=== PATIENT | male | born 2000 | race Caucasian/White ===

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

== ENCOUNTER 2021-12-04 14:51 | Emergency (ER) | payer OTHER ==
[~2021-12-04] VITALS: Ht 182.9 cm; Wt 75.0 kg
[2021-12-04 15:07] VITALS: BP 116/75
== END 2021-12-04 18:23 | disposition left against medical advice (07) ==
LOC: EMS 14:51
DX: Z53.21 Procedure and treatment not carried out due to patient leaving prior to being seen by health care provider (principal)

== ENCOUNTER 2022-12-06 02:31 | Emergency (ER) | payer OTHER ==
[~2022-12-06] VITALS: Ht 177.8 cm; Wt 85.0 kg
[2022-12-06 02:53] LABS: COVID AG,FIA SOURCE NASAL SWAB
[2022-12-06] MEDS ORDERED: ONDANSETRON HCL 4 MG TABLET PO ONE (03:30)
[2022-12-06] MEDS ORDERED: ACETAMINOPHEN/CODEINE 300-30 MG TABLET PO ONE (03:30)
[2022-12-06] MEDS ORDERED: GuaiFENesin/D-METHORPHAN [SUGAR-FREE] 200-20MG/10 ML SYRUP UDCUP PO ONE (03:30)
[2022-12-06 03:56] VITALS: BP 135/77
[2022-12-06] MEDS ORDERED: ONDA-104 PO (04:24)
[2022-12-06] MEDS ORDERED: GUAIFDM PO (04:24)
[2022-12-06] MEDS ORDERED: ACET-2080 PO (04:24)
[2022-12-06] MEDS ORDERED: IBUP-1554 PO (04:24)
== END 2022-12-06 05:21 | disposition home or self-care (01) ==
LOC: EMS 02:31
DX: U07.1 COVID-19 (principal); J02.8 Acute pharyngitis due to other specified organisms; R11.2 Nausea with vomiting, unspecified; Z20.822 Contact with and (suspected) exposure to COVID-19
CPT/HCPCS: 99284; 87426; 87430; Q0162